=== PATIENT | female | born 1985 | race Caucasian/White ===

== ENCOUNTER 2023-02-19 08:42 | Day surgery (SDC) | payer BC ==
[2023-02-10 11:05] VITALS: BMI 20.7
[2023-02-19] MEDS ORDERED: fentaNYL PF 100 MCG/2 ML SYRINGE ONE (10:12)
[2023-02-19] MEDS ORDERED: Lidocaine 2% 6 ML (Jelly) SYR ONE (10:16)
[2023-02-19] MEDS ORDERED: Famotidine/PF 20 mg/2ml Vial ONE (10:22)
[2023-02-19] MEDS ORDERED: Sodium Chloride 0.9% 100 ML ONE (10:22)
[2023-02-19] MEDS ORDERED: SUGAMMADEX SODIUM 200 MG/2 ML VIAL ONE (10:22)
[2023-02-19] MEDS ORDERED: CEFAZOLIN 2 GM VIAL ONE (10:22)
[2023-02-19] MEDS ORDERED: Dexamethasone 20 MG/5 ML VIAL ONE (10:37)
[2023-02-19] MEDS ORDERED: Ketorolac Tromethamine 30 MG/ML VIAL ONE (10:37)
[2023-02-19] MEDS ORDERED: Lidocaine 1% PF 5 ML VIAL ONE (10:37)
[2023-02-19] MEDS ORDERED: Rocuronium Bromide 10 MG/ML (10ML VIAL) ONE (10:37)
[2023-02-19] MEDS ORDERED: Ondansetron PF 4 MG/2 ML Vial ONE (10:37)
[2023-02-19] MEDS ORDERED: PROPOFOL 200 MG/20 ML VIAL ONE (10:37)
[2023-02-19] MEDS ORDERED: fentaNYL 50 mcg/mL 1 mL Vial ONE (11:42)
[2023-02-19] MEDS ORDERED: Midazolam HCl 2 mg/2 ml Vial ONE (12:29)
[2023-02-19] MEDS ORDERED: traMADol HCl 50 MG TAB ONE (13:24)
== END 2023-02-19 13:59 | disposition home or self-care (01) ==
LOC: SDC 08:42
PROVIDERS: ATTEND Surgery
PROC: 06BY0ZC Excision of Hemorrhoidal Plexus, Open Approach (ICD-10-PCS; principal; 2023-02-19)
DX: K64.8 Other hemorrhoids (principal)
CPT/HCPCS: 88304; J1100; J1885; J2250; J2405; J2704; J3010; J3490; S0028